=== PATIENT | female | born 1955 | race Caucasian/White ===

== ENCOUNTER 2019-06-21 07:42 | Outpatient (CLI) | payer BC ==
[2019-06-21 16:28] LABS: #Basophils 0.1 thou/uL (0.0-0.2); #Lymphocytes 1.7 thou/uL (1.20-3.40); #Monocytes 0.3 thou/uL (0.11-0.59); #Neutrophils 3.3 thou/uL (1.40-6.50); %Basophils 1.2 % (0.0-1.0); %Eosinophils 0.8 % (0.0-10.0); %Lymphocytes 31.6 % (21.0-51.0); %Monocytes 6.1 % (0.0-10.0); %Neutrophils 60.3 % (42.0-75.0); Hemoglobin 14.9 g/dL (12.0-16.0); Mean Corpuscular HGB CONC 33.9 g/dL (32.0-36.0); Mean Corpuscular Hemoglobin 32.9 pg (27.0-31.0); Mean Corpuscular Volume 97.1 fL (78.0-98.0); Mean Platelet Volume 7.5 fL (7.4-10.4); Platelet Count 231 thou/uL (130-400); RBC Distribution Width 12.2 % (11.5-14.5); Red Blood Cell (RBC) Count 4.52 mill/uL (4.20-5.40); White Blood Cell (WBC) Count 5.4 thou/uL (4.8-10.8)
[2019-06-21 16:45] LABS: Anion Gap 12 mmol/L (10-20); BUN (Urea Nitrogen) 18 mg/dL (9.8-20.1); Calc. Creatinine Clearance 0 mL/min (70-130); Carbon Dioxide 29 mmol/L (23-31); Chloride 101 mmol/L (98-107); Estimated GFR-MDRD 72; Glucose 86 mg/dL (80-115); Potassium 3.7 mmol/L (3.5-5.1); Sodium 138 mmol/L (136-145)
== END 2019-06-21 07:43 | disposition home or self-care (01) ==
LOC: LABBT 07:42
PROVIDERS: ATTEND Orthopaedic Surgery Hand Surgery
DX: Z01.818 Encounter for other preprocedural examination (principal); M72.0 Palmar fascial fibromatosis [Dupuytren]
CPT/HCPCS: 80048; 85025

== ENCOUNTER 2019-06-23 05:35 | Day surgery (SDC) | payer BC ==
[2019-06-21 15:53] VITALS: BMI 26.5
[2019-06-23] MEDS ORDERED: Betamet Acet/Betamet Na Ph 30 MG/5 ML VIAL ONE (06:28)
[2019-06-23] MEDS ORDERED: Sodium Chloride 0.9% 10 ML ONE (06:28)
[2019-06-23] MEDS ORDERED: Bacitracin Zinc Ointment 30 gm TUBE ONE (06:28)
[2019-06-23] MEDS ORDERED: Bupivacaine PF 0.5% 30 ML VIAL ONE (06:28)
[2019-06-23] MEDS ORDERED: Clindamycin/D5W 600 mg/50 ml Premix Bag ONE (06:29)
[2019-06-23] MEDS ORDERED: Fentanyl 100 MCG/2 ML VIAL ONE (06:51)
[2019-06-23] MEDS ORDERED: Ketorolac Tromethamine 30 MG/ML VIAL ONE (09:13)
[2019-06-23] MEDS ORDERED: Ondansetron PF 4 MG/2 ML Vial ONE (13:54)
[2019-06-23] MEDS ORDERED: Dexamethasone 20 MG/5 ML VIAL ONE (13:54)
[2019-06-23] MEDS ORDERED: PROPOFOL 200 MG/20 ML VIAL ONE (13:54)
--- NOTE | 2019-06-23 15:11 | OP ---
DATE OF PROCEDURE: 06/23/2019 PREOPERATIVE DIAGNOSES: 1. Right small finger Dupuytren's cord. 2. Right index finger Dupuytren's cord. POSTOPERATIVE DIAGNOSES: 1. Right small finger Dupuytren's cord. 2. Right index finger Dupuytren's cord. 3. Findings of cords involving the digital nerves at both digits. PROCEDURES PERFORMED: 1. (Via totally separate incisions) at the right small finger: a. Dupuytren's cord release. b. Digital nerve neuroplasty under magnification x2. 2. At the right index finger: a. Dupuytren's cord release/excision. b. Neuroplasty of both digital nerves under magnification. SPECIMENS: Separate right small finger and separate right index finger specimen of the Dupuytren's cords. ESTIMATED BLOOD LOSS: Less than 10 mL. TOURNIQUET TIME: 30 minutes. FINDINGS: Very thick, but short cord with involvement of the nerves being pulled from the midline and superficial. DESCRIPTION OF PROCEDURE: After successful anesthesia by [place] [facility], limb was prepped and draped. We gave 10 mL of 0.5% Marcaine block, divided equally between 2 incisions before the procedure, during the procedure, we gave additional 10 and at the end of procedure when the wounds were closed, we gave 10 more mL of 0.5% Marcaine without epinephrine. The patient had limb prepped and draped. Time-out was done appropriately. Then, we exsanguinated the right upper extremity, inflated the tourniquet to 250 mmHg pressure. A zigzag incision outlined over separately over each of the two masses, beginning at the midportion of the middle phalanx ulnarly on the small finger in a Veronica fashion and then midportion centrally on the on the index finger. Both were carried through skin and subcutaneous tissue, we identified neurovascular bundle at the most proximal incision. I then performed a digital nerve neuroplasty which was important because Dupuytren's cord fascial defect, there was an area where the nerve was quite entangled with the cords and neuroplasty was even more indicated. Once the neuroplasty completed on the digit, then we were able to excise the cord with separate incisions on the index finger realizing a 2 cm cord . Both areas had Celestone placed in, 2.5 mL each, hemostasis was obtained with deflation of tourniquet and digit was pink. The wounds were closed with 4-0 nylon in interrupted simple pattern after placing Celestone 2.5 mL over each neurovascular bundle. Digit was pink with 1 second refill, symmetrical to all of the digits. Bulky dressing was applied with bacitracin, Adaptic, 4 x 4, Kerlix, and the patient left the operating room without evidence of anesthetic or operative complication. Job ID: [id number]
== END 2019-06-23 10:57 | disposition home or self-care (01) ==
LOC: SDC 05:35
PROVIDERS: ATTEND Orthopaedic Surgery Hand Surgery
PROC: 0LN70ZZ Release Right Hand Tendon, Open Approach (ICD-10-PCS; principal; 2019-06-23)
DX: M72.0 Palmar fascial fibromatosis [Dupuytren] (principal); E20.9 Hypoparathyroidism, unspecified; E05.00 Thyrotoxicosis with diffuse goiter without thyrotoxic crisis or storm; Z79.899 Other long term (current) drug therapy; Z88.0 Allergy status to penicillin
CPT/HCPCS: 88304; 93005; 93010; J0702; J1885; J3010; J3490; S0020

== ENCOUNTER 2020-07-26 13:44 | Outpatient (CLI) | payer BC ==
--- NOTE | 2020-07-26 14:53 | BD ---
EXAM: DEXA bone density examination HISTORY: 64-year-old postmenopausal female for screening COMPARISON: None FINDINGS: L1--bone mineral density 0.871 g/sq cm; T score -1.1 L2--bone mineral density 0.912 g/sq cm; T score -1.1 L3--bone mineral density 0.914 g/sq cm; T score -1.5 L4--bone mineral density 0.909 g/sq cm; T score -1.4 Total L1-L4--bone mineral density 0.902 g/sq cm; T score -1.3 Left femoral neck--bone mineral density0.704; T score -1.3 Total proximal left femur--bone mineral density 0.865; T score 0.6 IMPRESSION: Osteopenia. This patient has a 10 year WHO fracture risk of a major osteoporotic fracture of 9.7% and of a hip fracture of 1.0%.
--- NOTE | 2020-08-01 15:28 | MMO ---
Bilateral MAMMO Bilat Screen [facility]. CLINICAL HISTORY: Patient is 64 years old and is seen for screening. The patient has the following family history of breast cancer: maternal aunt, GREAT and cousin female. The patient has no personal history of cancer. VIEWS: The views performed were: bilateral craniocaudal with tomosynthesis and bilateral mediolateral oblique with tomosynthesis. FILMS COMPARED: The present examination has been compared to prior imaging studies performed at [facility] on 12/23/2018, and at [facility] on 09/11/2013, 04/28/2016 and 05/10/2017. This study has been interpreted with the assistance of computer-aided detection. MAMMOGRAM FINDINGS: There are scattered fibroglandular densities. There are no suspicious masses, suspicious calcifications, or new areas of architectural distortion. IMPRESSION: THERE IS NO MAMMOGRAPHIC EVIDENCE OF MALIGNANCY. A ROUTINE FOLLOW-UP MAMMOGRAM IN 1 YEAR IS RECOMMENDED. THE RESULTS OF THIS EXAM WERE SENT TO THE PATIENT. ACR BI-RADS Category 1 - Negative MAMMOGRAPHY NOTE: 1. A negative mammogram report should not delay a biopsy if a dominant of clinically suspicious mass is present. 2. Approximately 10% to 15% of breast cancers are not detected by mammography. 3. Adenosis and dense breasts may obscure an underlying neoplasm. Reported by: JAK GRIDER MD Electonically Signed: [id number]
== END 2020-07-26 13:45 | disposition home or self-care (01) ==
LOC: BICMAMMO 13:44
PROVIDERS: ATTEND Internal Medicine
DX: Z12.31 Encounter for screening mammogram for malignant neoplasm of breast (principal); M94.9 Disorder of cartilage, unspecified; M85.89 Other specified disorders of bone density and structure, multiple sites; Z80.3 Family history of malignant neoplasm of breast
CPT/HCPCS: 77063; 77067; 77080

== ENCOUNTER 2023-09-16 08:43 | Outpatient (CLI) | payer MEDICARE, BC | END 2023-09-16 08:44 | disposition home or self-care (01) | LOC: BICMAMMO 08:43 | PROVIDERS: ATTEND Internal Medicine | DX: Z12.31 Encounter for screening mammogram for malignant neoplasm of breast (principal); Z80.3 Family history of malignant neoplasm of breast | CPT/HCPCS: 77063; 77067 ==